=== PATIENT | female | born 1995 | race Caucasian/White ===

== ENCOUNTER 2017-04-17 19:45 | Emergency (ER) | payer OTHER ==
--- NOTE | 2017-04-17 20:15 | EDPHY ---
H & P Stated Complaint: medication dosage increased 4 weeks ago, having thought of SI no plan Source: Patient Exam Limitations: No limitations - Personal History LMP (Females 10-55): Extended Cycle BCP/Inj Current Tetanus Diphtheria and Acellular Pertussis (TDAP): Yes Tetanus Vaccine Date: 2013 - Medical/Surgical History Hx Asthma: No Hx Chronic Respiratory Disease: No Hx Diabetes: No Hx Cardiac Disease: No Hx Renal Disease: No Hx Cirrhosis: No Hx Alcoholism: No Hx HIV/AIDS: No Hx Splenectomy or Spleen Trauma: No Other PMH: ovarian cysts, anxiety, vaginismus.depression - Family History Significant Family History: No pertinent family hx - Social History Smoking Status: Never smoked Alcohol Use: Sober Time Seen by Provider: 04/17/17 20:04 HPI/ROS: CHIEF COMPLAINT: Depression HISTORY OF PRESENT ILLNESS: Patient is a 21-year-old female with a history of depression and anxiety on Wellbutrin and Paxil. Her psychiatrist is Dr. Briscoe. States that about a month ago they increased her Paxil and over the last 3 days the patient is starting to have more suicidal thoughts. She denies any suicidal intent. No specific plans. No attempts to harm herself. She otherwise has not been ill. She denies drug or alcohol use. 2 friends brought her to the emergency department she is here voluntarily. REVIEW OF SYSTEMS: Constitutional: denies: chills, fever, recent illness, recent injury EENTM: denies: blurred vision, double vision, nose congestion Respiratory: denies: cough, shortness of breath Cardiac: denies: chest pain, irregular heart rate, lightheadedness, palpitations Gastrointestinal/Abdominal: denies: abdominal pain, diarrhea, nausea, vomiting, blood streaked stools Genitourinary: denies: dysuria, frequency, hematuria, pain Musculoskeletal: denies: joint pain, muscle pain Skin: denies: lesions, rash, jaundice, bruising Neurological: denies: headache, numbness, paresthesia, tingling, dizziness, weakness Hematologic/Lymphatic: denies: blood clots, easy bleeding, easy bruising Immunologic/allergic: denies: HIV/AIDS, transplant EXAM: GENERAL: Well-appearing, well-nourished and in no acute distress. HEAD: Atraumatic, normocephalic. EYES: Pupils equal round and reactive to light, extraocular movements intact, sclera anicteric, conjunctiva are normal. ENT: TMs normal, nares patent, oropharynx clear without exudates. Moist mucous membranes. NECK: Normal range of motion, supple without lymphadenopathy or JVD. LUNGS: Breath sounds clear to auscultation bilaterally and equal. No wheezes rales or rhonchi. HEART: Regular rate and rhythm without murmurs, rubs or gallops. ABDOMEN: Soft, nontender, normoactive bowel sounds. No guarding, no rebound. No masses appreciated. BACK: No CVA tenderness, no spinal tenderness, step-offs or deformities EXTREMITIES: Normal range of motion, no pitting or edema. No clubbing or cyanosis. NEUROLOGICAL: Cranial nerves II through XII grossly intact. Normal speech, normal gait. 5/5 strength, normal movement in all extremities, normal sensation PSYCH: Depressed affect, answers all questions appropriately. SKIN: Warm, dry, normal turgor, no visible rashes or lesions. (Alexis Valiente) Constitutional: Initial Vital Signs Temperature (C) 37.5 C 04/17/17 19:55 Heart Rate 96 04/17/17 19:55 Respiratory Rate 20 04/17/17 19:55 Blood Pressure 132/79 H 04/17/17 19:55 O2 Sat (%) 96 04/17/17 19:55 O2 Delivery Mode Room Air Allergies/Adverse Reactions: No Known Allergies Allergy (Verified 01/21/16 14:51) Home Medications: Medication Instructions Recorded Bcp 11/26/15 busPIRone [Buspar (*)] 5 mg PO 11/26/15 Paroxetine HCl 04/17/17 Medical Decision Making ED Course/Re-evaluation: 1208AM: Patient is seen and evaluated by mental health. They do not feel that she needs to remain on M1 hold or be admitted to the hospital. The knee has given her resources in cleared her to go home. Return precautions have been discussed with the patient. She understands return emergency room she develops any worsening symptoms this includes f also wanting to harm herself or any else. Thoughts of suicide. Feeling more depressed. She understands. (Parker Aguilera) Differential Diagnosis: Partial list of the Differential diagnosis considered include but were not limited to; depression, anxiety, suicidality and although unlikely based on the history and physical exam, I also considered bipolar, schizophrenia, substance abuse. (Alexis Valiente) - Data Points Laboratory Results: Laboratory Results 04/17/17 20:20 04/17/17 20:20 Departure - Departure Disposition: Home, Routine, Self-Care Clinical Impression: Depression Qualifiers: Depression Type: major depressive disorder Major depression recurrence: recurrent Active/Remission status: currently active Major depression episode severity: moderate Qualified Code(s): F33.1 - Major depressive disorder, recurrent, moderate Condition: Good Instructions: Depression (ED) Additional Instructions: 1. Return emergency room if you have further thoughts of wanting to harm herself or anybody else. 2. Follow up with resources were provided today. Referrals: Elly Briscoe MD [Primary Care Provider] - As per Instructions
[2017-04-17 20:32] LABS: PLATELET COUNT 247 10^3/uL (150-400)
[2017-04-18 00:10] VITALS: TEMP 98.4
[2017-04-18 00:12] VITALS: BP 123/76; PULSE 68; RESP 18; O2SAT 98
== END 2017-04-18 00:16 | disposition home or self-care (01) ==
DX: F33.1 Major depressive disorder, recurrent, moderate (principal)
CPT/HCPCS: 80305; G0480

== ENCOUNTER 2017-04-26 16:03 | Emergency (ER) | payer OTHER ==
[2017-04-26 16:10] VITALS: TEMP 98.6
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
[2017-04-26 18:13] LABS: PLATELET COUNT 195 10^3/uL (150-400)
[2017-04-26 18:51] VITALS: RESP 16; O2SAT 98
[2017-04-26] MEDS ORDERED: CEPHALEXIN 500MG PREPACK#4 BTL TAKEHOME ONE (19:29)
[2017-04-26 19:45] VITALS: BP 124/76; PULSE 77
== END 2017-04-26 19:45 | disposition home or self-care (01) ==
DX: N93.8 Other specified abnormal uterine and vaginal bleeding (principal); N30.01 Acute cystitis with hematuria; B96.20 Unspecified Escherichia coli [E. coli] as the cause of diseases classified elsewhere

== ENCOUNTER 2017-05-15 07:58 | Emergency (ER) | payer OTHER ==
[2017-05-15 08:04] VITALS: RESP 16; TEMP 98.4
--- NOTE | 2017-05-15 08:47 | EDPHY ---
H & P Time Seen by Provider: 05/15/17 08:17 HPI/ROS: HPI Depression, suicidal thoughts. 21-year-old female by private vehicle. This patient has a history of depression and suicidal ideation. She reports that she is currently on Lexapro and Wellbutrin for this. She was seen at [facility] a few days ago and diagnosed with a urinary tract infection by Dr. Rose Malloy. She was placed on Keflex at 500 mg twice daily for this. She started taking this on Saturday. She reports that since yesterday her depression and anxiety has worsened. She has also had some mild nausea and diarrhea. She states that since last night she has also had suicidal thoughts which have been worsening. She denies a specific plan for suicide. She is concerned a bout a possible medication reaction between Keflex and the Wellbutrin and Lexapro. Denies any IV drugs or street drugs. She had some alcohol last night at about 6:30 p.m.. Nothing since then. ROS: Constitutional: No fever, no chills. No weakness. Eyes: No discharge. No changes in vision. ENT: No sore throat. No nasal congestion or rhinorrhea. Respiratory: No cough. No shortness of breath. Cardiac: No chest pain, no palpitations. Gastrointestinal: No abdominal pain, no vomiting, no diarrhea. Genitourinary: No hematuria. No dysuria or increased frequency with urination. Musculoskeletal: No back pain. No neck pain. No myalgias or arthralgias. Skin: No rashes. Neurological: No headache. No focal weakness or altered sensation. Past medical history: Depression, anxiety, urinary tract infection, ovarian cyst. Social history: Nonsmoker. Student [employer]. Here by herself. Social alcohol. Physical Exam: General Appearance: Alert, no distress. This patient is responding to questions appropriately and in full sentences. This patient appears well- hydrated and well-nourished. Eyes: Pupils equal and round no pallor or injection. No lid edema, erythema or injection. Respiratory: There are no retractions, lungs are clear to auscultation with good air movement bilaterally. Cardiovascular: Regular rate and rhythm. No murmur. Gastrointestinal: Abdomen is soft and nontender, no masses, bowel sounds normal. No focal tenderness at McBurney's point. No Ramey sign. Neurological: Motor sensory function is grossly intact. Cranial nerves are normal. Gait is normal. Skin: Warm and dry, no rashes. Musculoskeletal: Neck is supple and nontender. Extremities are symmetrical. All joints range without pain or impingement. Psychiatric: Flat affect. No agitation. Database: EKG: Imaging: Procedures: Emergency department course: Vital signs reviewed and are normal. The patient is requesting to be evaluated by [facility]. I explained to her I felt an interaction between Keflex and her Lexapro and Wellbutrin is very unlikely. I did offer to change her antibiotic to nitrofurantoin. She does not want to do this at this time. She was medically cleared at 8:40 a.m.. We will get blood work as requested by [facility]. [facility] is aware she is here and requires evaluation. 12:00 p.m., patient seen and evaluated by [facility]. She is not suicidal. She does not meet criteria for an M1 hold nor does she meet criteria for admission. Follow-up has been arranged through the [facility]. She feels comfortable with this. Return to emergency department precautions were discussed with her. All of her questions were answered. She was discharged in good condition. Differential Diagnosis: The differential diagnosis on this patient includes but is not limited to situational depression, anxiety, major depression, suicidal ideation. Medication reaction unlikely. This represents a partial list of diagnoses considered. These considerations are based on history, physical exam, past history, reassessment and diagnostic testing. Smoking Status: Never smoked Constitutional: Initial Vital Signs Temperature (C) 36.9 C 05/15/17 08:01 Heart Rate 82 05/15/17 08:01 Respiratory Rate 16 05/15/17 08:01 Blood Pressure 117/69 05/15/17 08:01 O2 Sat (%) 97 05/15/17 08:01 O2 Delivery Mode Room Air Allergies/Adverse Reactions: No Known Allergies Allergy (Verified 05/15/17 08:00) Home Medications: Medication Instructions Recorded Bcp 11/26/15 busPIRone [Buspar (*)] 5 mg PO 11/26/15 Cephalexin [Keflex] 500 mg PO QID #20 cap 04/26/17 Lexapro 05/15/17 Medical Decision Making - Data Points Laboratory Results: Laboratory Results 05/15/17 08:50 05/15/17 08:50 0205/15/17 05/15/17 10:10 09:20 08:50 WBC RBC Hgb Hct MCV MCH MCHC RDW Plt Count MPV Neut % (Auto) Lymph % (Auto) Gregory % (Auto) Eos % (Auto) Baso % (Auto) Nucleat RBC Rel Count Absolute Neuts (auto) Absolute Lymphs (auto) Absolute Monos (auto) Absolute Eos (auto) Absolute Basos (auto) Absolute Nucleated RBC Immature Gran % Immature Gran # Sodium 140 mEq/L mEq/L (135-145) Potassium 4.4 mEq/L mEq/L (3.5-5.2) Chloride 108 mEq/L mEq/L (97-110) Carbon Dioxide 18 mEq/l L mEq/l (22-31) Anion Gap 14 mEq/L mEq/L (8-16) BUN 10 mg/dL mg/dL (7-23) Creatinine 1.0 mg/dL mg/dL (0.6-1.0) Estimated GFR > 60 Glucose 77 mg/dL mg/dL (70-100) Calcium 9.5 mg/dL mg/dL (8.5-10.4) Beta HCG, Qual NEGATIVE Urine Opiates Screen NEGATIVE (NEGATIVE) Urine Barbiturates NEGATIVE (NEGATIVE) Ur Phencyclidine Scrn NEGATIVE (NEGATIVE) Ur Amphetamine Screen NEGATIVE (NEGATIVE) U Benzodiazepines Scrn NON-NEGATIVE H (NEGATIVE) Urine Cocaine Screen NEGATIVE (NEGATIVE) U Marijuana (THC) Screen NEGATIVE (NEGATIVE) Ethyl Alcohol < 10 mg/dL mg/dL (0-10) 05/15/17 08:50 WBC 9.27 10^3/uL 10^3/uL (3.80-9.50) RBC 4.77 10^6/uL 10^6/uL (4.18-5.33) Hgb 14.4 g/dL g/dL (12.6-16.3) Hct 42.1 % % (38.0-47.0) MCV 88.3 fL fL (81.5-99.8) MCH 30.2 pg pg (27.9-34.1) MCHC 34.2 g/dL g/dL (32.4-36.7) RDW 13.1 % % (11.5-15.2) Plt Count 242 10^3/uL 10^3/uL (150-400) MPV 9.6 fL fL (8.7-11.7) Neut % (Auto) 65.3 % % (39.3-74.2) Lymph % (Auto) 25.7 % % (15.0-45.0) Gregory % (Auto) 7.0 % % (4.5-13.0) Eos % (Auto) 1.1 % % (0.6-7.6) Baso % (Auto) 0.5 % % (0.3-1.7) Nucleat RBC Rel Count 0.0 % % (0.0-0.2) Absolute Neuts (auto) 6.05 10^3/uL 10^3/uL (1.70-6.50) Absolute Lymphs (auto) 2.38 10^3/uL 10^3/uL (1.00-3.00) Absolute Monos (auto) 0.65 10^3/uL 10^3/uL (0.30-0.80) Absolute Eos (auto) 0.10 10^3/uL 10^3/uL (0.03-0.40) Absolute Basos (auto) 0.05 10^3/uL 10^3/uL (0.02-0.10) Absolute Nucleated RBC 0.00 10^3/uL 10^3/uL (0-0.01) Immature Gran % 0.4 % % (0.0-1.1) Immature Gran # 0.04 10^3/uL 10^3/uL (0.00-0.10) Sodium Potassium Chloride Carbon Dioxide Anion Gap BUN Creatinine Estimated GFR Glucose Calcium Beta HCG, Qual Urine Opiates Screen Urine Barbiturates Ur Phencyclidine Scrn Ur Amphetamine Screen U Benzodiazepines Scrn Urine Cocaine Screen U Marijuana (THC) Screen Ethyl Alcohol Departure - Departure Disposition: Home, Routine, Self-Care Clinical Impression: Anxiety, Depression Condition: Good Instructions: Anxiety (ED), Depression (ED) Additional Instructions: Read and follow provided instructions. Follow-up with your behavioral health through the [facility] as instructed by your behavioral Health clinician here in the emergency department. Take your medication as prescribed. Return to the emergency department for worsening symptoms, worsening depression , suicidal thoughts or other serious concerns. Referrals: Elly Briscoe MD [Primary Care Provider] - As per Instructions
[2017-05-15 09:23] LABS: PLATELET COUNT 242 10^3/uL (150-400)
[2017-05-15 12:19] VITALS: BP 105/85; PULSE 78; O2SAT 96
== END 2017-05-15 12:17 | disposition home or self-care (01) ==
DX: F41.8 Other specified anxiety disorders (principal)
CPT/HCPCS: 80305; G0480